=== PATIENT | male | born 1945 | race Caucasian/White ===

== ENCOUNTER 2018-04-06 09:20 | Emergency (ER) | payer OTHER ==
[~2018-04-06] VITALS: Ht 182.9 cm; Wt 78.0 kg
[2018-04-06] MEDS ORDERED: DIPH,PERTUSS(ACELL),TET VAC/PF 0.5 ML IM-VACC ONE ×2 (09:30→09:39)
[2018-04-06] MEDS ORDERED: LIDOCAINE-MPF 1%, 5ML INFIL ONE (09:30)
[2018-04-06] MEDS ORDERED: LIDOCAINE-MPF 1%, 2ML ONE (09:36)
[2018-04-06 09:45] LABS: MEAN CORPUSCULAR HEMOGLOBIN 29.8 pg (27.5-34.5); MEAN CORPUSCULAR HGB CONC 33.9 g/dL (33.2-36.2); MEAN CORPUSCULAR VOLUME 88.1 fL (81-97); MEAN PLATELET VOLUME 8.7 fL (7.4-10.4); PLATELET COUNT 152 x10^3/uL (130-400); RED CELL DISTRIBUTION WIDTH 15.4 % (9.4-14.8)
[2018-04-06 09:53] LABS: INTERNATIONAL NORMALIZED RATIO 1.03 (0.93-1.1); PROTHROMBIN TIME 10.7 Seconds (9.6-11.5)
[2018-04-06 09:56] LABS: ANION GAP 12 mmol/L (5-15); CALCIUM 8.7 mg/dL (8.5-10.1); CHLORIDE 111 mmol/L (98-107); CREATININE 1.43 mg/dL (0.7-1.3)
[2018-04-06 09:59] LABS: MD YES
[2018-04-06 10:01] LABS: MONOS#(MANUAL) 0.34 x10^3/uL (0.3-2.7); MONOS% (MANUAL) 3 % (2-9)
[2018-04-06 10:03] LABS: EOS#(MANUAL) 0.34 x10^3/uL (0.0-0.4); EOS% (MANUAL) 3 % (1-7); LYMPH#(MANUAL) 6.84 x10^3/uL (1-3.4); LYMPHS% (MANUAL) 60 % (22-44); SEG#(MANUAL) 3.88 x10^3/uL (1.8-6.8); SEGS% (MANUAL) 34 % (42-75)
[2018-04-06 10:04] LABS: ANISOCYTOSIS 1+
[2018-04-06 10:05] LABS: <PLATELET ESTIMATE> ADEQUATE; <PLT MORPHOLOGY> NORMAL PLT MORPH
[2018-04-06 10:37] VITALS: BP 104/53
== END 2018-04-06 12:41 | disposition home or self-care (01) ==
LOC: ED 10:19 → EDBD 10:19 → ED 12:41
DX: S01.81XA Laceration without foreign body of other part of head, initial encounter (principal); G20 Parkinson's disease; R79.1 Abnormal coagulation profile; W01.0XXA Fall on same level from slipping, tripping and stumbling without subsequent striking against object, initial encounter; Y93.01 Activity, walking, marching and hiking; Y92.488 Other paved roadways as the place of occurrence of the external cause; Y99.8 Other external cause status
CPT/HCPCS: 12051; 36415; 70450; 80048; 82040; 85025; 85610; 85730; 90471; 90715

== ENCOUNTER 2019-11-15 17:46 | Emergency (ER) | payer OTHER ==
[~2019-11-15] VITALS: Ht 182.9 cm; Wt 77.5 kg
[2019-11-15 18:11] VITALS: BP 161/71
--- NOTE | 2019-11-15 19:04 | NUR ---
REPORT FROM ADAN ZHU
[2019-11-15] MEDS ORDERED: SODIUM CHLORIDE FLUSH 10ML SYR IVF ONE (20:00)
[2019-11-15 20:09] LABS: BASOPHILS # (AUTO) 0.02 x10^3/uL (0-0.1); BASOPHILS % (AUTO) 0 % (0-1); EOSINOPHILS # (AUTO) 0.18 x10^3/uL (0-0.4); EOSINOPHILS % (AUTO) 2 % (1-7); LYMPHOCYTES # (AUTO) 4.74 x10^3/uL (1-3.4); LYMPHOCYTES % (AUTO) 52 % (22-44); MD NO; MEAN CORPUSCULAR HEMOGLOBIN 28.7 pg (27.5-34.5); MEAN CORPUSCULAR HGB CONC 32.8 g/dL (33.2-36.2); MEAN CORPUSCULAR VOLUME 87.4 fL (81-97); MEAN PLATELET VOLUME 8.6 fL (7.4-10.4); MONOCYTES % (AUTO) 4 % (2-9); NEUTROPHILS # (AUTO) 3.77 x10^3/uL (1.8-6.8); NEUTROPHILS % (AUTO) 41 % (42-75); PLATELET COUNT 146 x10^3/uL (130-400); RED BLOOD COUNT 4.48 x10^6/uL (4.38-5.82); RED CELL DISTRIBUTION WIDTH 14.9 % (9.4-14.8)
[2019-11-15 20:19] LABS: ALANINE AMINOTRANSFERASE 12 U/L (12-78); ANION GAP 5 mmol/L (5-15); CALCIUM 8.4 mg/dL (8.5-10.1); CHLORIDE 109 mmol/L (98-107); CREATININE 1.22 mg/dL (0.7-1.3)
[2019-11-15 20:23] LABS: ALKALINE PHOSPHATASE 125 U/L (45-117); BILIRUBIN,TOTAL 0.5 mg/dL (0.2-1.0); CREATINE KINASE, TOTAL 134 U/L (39-308); TOTAL PROTEIN 7.2 g/dL (6.4-8.2); TROPONIN I < 0.015 ng/mL (0.000-0.045)
[2019-11-15 20:47] LABS: CULTURE INDICATED? NO; MICROSCOPIC NOT IND
--- NOTE | 2019-11-15 21:00 | NUR ---
ALL RESULTS BACK AT THIS TIME CHART UP FOR RECHECK AWAITING FURTHER ORDERS
--- NOTE | 2019-11-15 21:04 | NUR ---
FAMILY DAUGHTER NICCI [phone] DAUGHTER OMARI [phone] [facility] CALL WHEN HE IS GOOD TO GO
--- NOTE | 2019-11-15 21:15 | NUR ---
pt able to amb without assist
--- NOTE | 2019-11-15 21:24 | NUR ---
PER PT REQ DAUGHTER CALLED TO NOTIFY OF HIS LOCATION AND STATUS
--- NOTE | 2019-11-15 21:26 | NUR ---
[facility] CALLED TO INFORM THAT PT IS RETURNING
--- NOTE | 2019-11-15 21:50 | NUR ---
Patient/Caregiver given discharge instructions and they have confirmed that they understand the instructions. Patient ambulatory with steady gait. piv dc prior to pt leaving facility
== END 2019-11-15 21:51 | disposition home or self-care (01) ==
LOC: ED 21:00
DX: R53.1 Weakness (principal); R07.9 Chest pain, unspecified; I11.9 Hypertensive heart disease without heart failure; W01.0XXA Fall on same level from slipping, tripping and stumbling without subsequent striking against object, initial encounter; Y93.89 Activity, other specified; Y92.098 Other place in other non-institutional residence as the place of occurrence of the external cause; Y99.8 Other external cause status
CPT/HCPCS: 36415; 71045; 80053; 81003; 82550; 84484; 85025; 93005; 99285